=== PATIENT | female | born 1990 | race Hispanic/Latino ===

== ENCOUNTER 2020-11-30 23:04 | Inpatient (IN) | payer OTHER ==
[~2020-11-30] VITALS: Ht 149.9 cm; Wt 77.1 kg
[2020-12-01] VITALS (7 sets, daily range): BP systolic 99–120; BP diastolic 54–83
[2020-12-01] MEDS ORDERED: 0.9% NACL 250ML IVPB SCH (01:00)
[2020-12-01] MEDS ORDERED: AZITHROMYCIN 500MG VIAL IVPB SCH (01:00)
[2020-12-01] MEDS ORDERED: DEXAMETHASONE SOD PHOSPHATE 4 MG/ML 1ML VIAL IVP SCH ×2 (01:00→21:00)
[2020-12-01] MEDS ORDERED: MONTELUKAST SODIUM 10 MG TAB PO SCH ×2 (01:00→11:03)
[2020-12-01] MEDS ORDERED: LACTATED RINGERS 1000ML 2,000 ML IV STA (01:43)
[2020-12-01 01:48] LABS: ABG BASE EXCESS -1.7 mmol/L (-2.0-3.0); ABG HCO3 21.8 mmol/L (21.0-28.0); ABG OXYGEN SATURATION 92.2 % (95.0-99.0); ABG PCO2 34 mmHg (32-45)
[2020-12-01] MEDS ORDERED: LACTATED RINGERS 1000ML 1,000 ML IV ONE (02:34)
[2020-12-01 03:03] LABS: CREATININE 0.9 mg/dL (0.5-1.5); POTASSIUM 4.1 mmol/L (3.5-5.1)
[2020-12-01] MEDS: AZITHROMYCIN 500MG+NS 250ML 250 ML IV SCH ×2 (03:07→03:09)
[2020-12-01 03:08] LABS: CRP QUANTITATIVE 19.2 mg/L (0.00-9.0)
[2020-12-01 03:51] LABS: HEMATOCRIT 43.1 % (36-48); LYMPHOCYTES % (AUTO) 34.7 % (21.0-51.0); MEAN CORPUSCULAR HEMOGLOBIN 28.4 pg (27.0-33.0); MEAN CORPUSCULAR HGB CONC 32.7 g/dL (32.0-36.0); MEAN CORPUSCULAR VOLUME 86.7 fL (79-99); MONOCYTES % (AUTO) 4.7 % (3.0-13.0); PLATELET COUNT (AUTO) 211 K/uL (130-400); RED BLOOD CELL COUNT(AUTO) 4.97 MIL/uL (4.00-5.50); RED CELL DISTRIBUTION WIDTH 12.5 % (11.0-15.5); WHITE BLOOD COUNT (AUTO) 3.4 K/uL (4.8-10.8)
[2020-12-01] MEDS ORDERED: ONDANSETRON 4MG INJ IVP ONE (04:00)
[2020-12-01] MEDS ORDERED: ENOXAPARIN SODIUM 40 MG/0.4 ML SYRINGE SQ ONE (04:00)
[2020-12-01] MEDS ORDERED: MAGNESIUM 2GM PREMIX 50ML 50 ML IV STA (04:50)
[2020-12-01] MEDS ORDERED: KCL 20 MEQ ERTAB PO ONE (05:00)
[2020-12-01] MEDS ORDERED: IOHEXOL-350 75 ML VIAL IV ONE (05:52)
[2020-12-01] MEDS ORDERED: ONDANSETRON 4MG INJ IV PRN (06:00)
[2020-12-01] MEDS ORDERED: ACETAMINOPHEN 325 MG TAB PO PRN ×2 (06:00)
[2020-12-01] MEDS ORDERED: ALBUTEROL INHALER 90MCG/INH IH SCH (06:00)
[2020-12-01] MEDS ORDERED: NITROGLYCERIN 0.4 MG SL TAB SL PRN (06:00)
[2020-12-01] MEDS ORDERED: ERGOCALCIFEROL (VITAMIN D2) 50,000 UNIT CAPSULE PO ONE (06:00)
[2020-12-01] MEDS ORDERED: CEFTRIAXONE 1G VIAL IV SCH (06:00)
[2020-12-01 06:52] LABS: MAGNESIUM 2.3 mg/dL (1.80-2.40)
[2020-12-01 07:58] LABS: INR 1.07 (0.85-1.15); PROTHROMBIN TIME 11.6 SEC (9.6-11.6)
[2020-12-01 07:59] LABS: PARTIAL THROMBOPLASTIN TIME 32.8 SEC (26.3-35.5)
[2020-12-01] MEDS ORDERED: ZINC SULFATE 220 CAPSULE PO SCH (09:00)
[2020-12-01] MEDS ORDERED: ASCORBIC ACID 500 MG TAB PO SCH (09:00)
[2020-12-01] MEDS ORDERED: FAMOTIDINE 20MG TAB PO SCH (09:00)
[2020-12-01] MEDS ORDERED: ACETYLCYSTEINE 600 MG CAPSULE PO SCH (09:00)
[2020-12-01] MEDS ORDERED: ENOXAPARIN SODIUM 40 MG/0.4 ML SYRINGE SQ SCH (09:00)
[2020-12-01 09:10] LABS: APPEARANCE,URINE Clear (CLEAR); BILIRUBIN,URINE Negative (NEGATIVE); COLOR,URINE Yellow (YELLOW); GLUCOSE, URINE (UA) Negative (NEGATIVE); KETONES,URINE 40 mg/dL (NEGATIVE); LEUKOCYTE ESTERASE ,URINE Negative (NEGATIVE); NITRATE,URINE Negative (NEGATIVE); OCCULT BLOOD,URINE Large (NEGATIVE); PROTEIN,URINE Trace mg/dL (NEGATIVE)
[2020-12-01 09:17] LABS: HCG,QUAL RESULT NEGATIVE (NEGATIVE)
[2020-12-01 09:18] LABS: BACTERIA,URINE Rare /HPF (None Seen); SQUAMOUS EPITHELIAL CELL,UR Rare /HPF (0-2); WBC,URINE 0-1 /HPF (0-1)
[2020-12-01] MEDS: ALBUTEROL INHALER 90MCG/INH IH SCH ×2 (12:43→17:04)
[2020-12-01] MEDS ORDERED: DEXTROSE 50%-WATER 50 ML DISP.SYRIN IV ONE (19:21)
== END 2020-12-01 19:35 | disposition home or self-care (01) | DRG 177 ==
LOC: EDH 23:04 → EDHIP 23:05
PROVIDERS: ADMIT Internal Medicine; ATTEND Internal Medicine
DX: U07.1 COVID-19 (principal); J96.01 Acute respiratory failure with hypoxia; E66.01 Morbid (severe) obesity due to excess calories; E86.0 Dehydration; E87.6 Hypokalemia; Z68.34 Body mass index [BMI] 34.0-34.9, adult
CPT/HCPCS: 36415; 71045; 71275; 80048; 81001; 81025; 82550; 82728; 82803; 83605; 83615; 83735; 84145; 84484; 85025; 85378; 85610; 85730; 86140; 87040; 87635; 93005; C9803; G0378; J0456; J0696; J1100; J1650; J2405; J7070; J7120; Q9967